=== PATIENT | male | born 1965 | race Two or more races ===

== ENCOUNTER 2021-08-04 10:46 | Emergency (ER) | payer SELFPAY ==
[~2021-08-04] VITALS: Ht 185.4 cm; Wt 97.9 kg
[2021-08-04] MEDS ORDERED: MECLIZINE 25MG TABLET PO ONE (11:00)
[2021-08-04 11:30] LABS: BASOPHILS % 0.4 % (0.0-2.0); EOSINOPHILS % 4.1 % (0.0-5.0); HEMATOCRIT. 45.5 % (42.0-52.0); HEMOGLOBIN. 14.7 g/dL (14.0-18.0); LYMPHOCYTES % 25.7 % (20.0-50.0); MEAN CORPUSCULAR VOLUME 80.4 fL (80.0-94.0); MEAN PLATELET VOLUME 8.3 fl (7.4-10.4); MONOCYTES % 8.6 % (2.0-8.0); NEUTROPHILS % 61.2 % (40.0-76.0); PLATELET 192 x1000/uL (130-400); RED BLOOD CELL COUNT 5.66 mill/uL (4.7-6.1); RED CELL DISTRIBUTION WIDTH 15.1 % (11.6-14.6)
[2021-08-04] MEDS ORDERED: METOCLOPRAMIDE HCL 10MG/2ML VIAL IV ONE (11:30)
[2021-08-04] MEDS ORDERED: SODIUM CHLORIDE 0.9% 1,000 ML IV ONE (11:30)
[2021-08-04 11:37] LABS: CHLORIDE 109 mEq/L (98-107)
[2021-08-04] MEDS ORDERED: IOHEXOL-350 100 ML BOTTLE ONE (13:17)
[2021-08-04 14:16] LABS: CLARITY URINE CLEAR (CLEAR); COLOR URINE YELLOW (YELLOW); KETONES URINE NEGATIVE (NEGATIVE); LEUKOCYTE ESTERASE URINE NEGATIVE (NEGATIVE); NITRITE URINE NEGATIVE (NEGATIVE); OCCULT BLOOD URINE NEGATIVE (NEGATIVE); PH URINE 5.5 (4.5-8.0); PROTEIN URINE NEGATIVE (NEGATIVE); UROBILINOGEN URINE 0.2 E.U./dL (0.2-1.0)
[2021-08-04] MEDS ORDERED: MECL-159 MT (15:33)
[2021-08-04 15:35] VITALS: BP 165/92
== END 2021-08-04 15:49 | disposition home or self-care (01) ==
LOC: ER 10:46
DX: R42 Dizziness and giddiness (principal); R11.2 Nausea with vomiting, unspecified; I10 Essential (primary) hypertension; E86.0 Dehydration; Z98.890 Other specified postprocedural states; Z79.899 Other long term (current) drug therapy
CPT/HCPCS: 36415; 70450; 70496; 80053; 81003; 85025; 93005; 96361; 96374; 99285; J2765; J7030; Q9967; J8597